=== PATIENT | female | born 1985 | race Caucasian/White ===

== ENCOUNTER 2018-01-21 17:38 | Emergency (ER) | payer OTHER ==
[~2018-01-21] VITALS: Ht 157.5 cm; Wt 83.9 kg
[~2018-01-21 17:38] MED LIST: ACETAMINOPHEN-1 EAC1 PO; ALBUTEROL2.5 MG/0.5 INH; BACTRIM DS TAB1 EACH PO; CEPHALEXIN 500500 M3 PO; CIPRO250 M1 PO; CIPROFLOXACIN500 M1 PO; CLEOCIN HCL300 MG PO; DARVOCET-N 1001 EACH PO; DOXYCYCLINE HY100 MG PO; FLEXERIL PO; HYDROCODON-ACE1 EAC7 PO; IBUPROFEN 800800 M1 PO; IBUPROFEN 800800 MG PO; IBUPROFEN200 M2 PO; KEFLEX500 MG PO; LIDOCAINE VISC100 ML MM; MACROBID 100 M100 M1 PO; MEDROLDOSEPACK PO; NAPROSYN500 MG PO; NOHOMEMEDICATIONS; NORCO 5-325 TA1 EAC1 PO; NORCO 5-325 TA1 EACH PO; PREDNISONE 20 M20 MG PO; PYRIDIUM200 MG PO; ROBAXIN 750 MG750 M1 PO; TRAMADOL 50 MG50 MG PO; TUSSIONEX PENN473 ML PO; VIBRAMYCIN 100100 MG PO; ZOFRAN4 MG PO; ZPAK PO; [UNRECOGNIZED DRUG - REMARK]
[2018-01-21 17:41] VITALS: BP 145/95
[2018-01-21] MEDS ORDERED: CLEOCIN HCL150 MG PO (17:50)
[2018-01-21] MEDS ORDERED: NAPROSYN500 MG PO (17:50)
== END 2018-01-21 18:11 | disposition home or self-care (01) ==
LOC: M.ERS 17:38
DX: K04.7 Periapical abscess without sinus (principal); F17.210 Nicotine dependence, cigarettes, uncomplicated; Z88.0 Allergy status to penicillin; Z90.49 Acquired absence of other specified parts of digestive tract

== ENCOUNTER 2018-03-18 12:17 | Emergency (ER) | payer OTHER ==
[~2018-03-18] VITALS: Ht 160 cm; Wt 79.4 kg
[~2018-03-18 12:17] MED LIST changes: +CLEOCIN HCL150 MG PO
[2018-03-18] MEDS ORDERED: NABUMETONE 750750 M1 PO (15:05)
[2018-03-18] MEDS ORDERED: ROBAXIN 750 MG750 M1 PO (15:05)
[2018-03-18 15:35] VITALS: BP 142/93
== END 2018-03-18 15:36 | disposition home or self-care (01) ==
LOC: M.ERS 12:17
DX: S16.1XXA Strain of muscle, fascia and tendon at neck level, initial encounter (principal); S39.012A Strain of muscle, fascia and tendon of lower back, initial encounter; S29.019A Strain of muscle and tendon of unspecified wall of thorax, initial encounter; Z90.49 Acquired absence of other specified parts of digestive tract; Z88.0 Allergy status to penicillin; S09.8XXA Other specified injuries of head, initial encounter; V49.49XA Driver injured in collision with other motor vehicles in traffic accident, initial encounter; Y93.89 Activity, other specified; Y92.89 Other specified places as the place of occurrence of the external cause; Y99.8 Other external cause status